=== PATIENT | female | born 2000 | race Caucasian/White ===

== ENCOUNTER 2022-08-02 08:22 | Outpatient (REF) | payer OTHER, SELFPAY ==
[2022-08-02 08:55] LABS: Estimated Average Glucose 91 mg/dL; Hemoglobin A1c % 4.8 %
[2022-08-02 09:20] LABS: Alanine Aminotransferase 9 U/L (0-31); Albumin Level 4.3 g/dL (3.5-5.0); Alkaline Phosphatase 37 U/L (39-117); Anion Gap 9 (12-20); Aspartate Amino Transferase 12 U/L (5-31); Bilirubin Total 0.7 mg/dL (0.0-1.0); Blood Urea Nitrogen 14 mg/dL (9-16); Calcium 9.6 mg/dL (8.4-10.2); Carbon Dioxide 28 mmol/L (22-29); Chloride 106 mmol/L (96-108); Cholesterol 175 mg/dL; Estimated Glomerular Filt Rate > 60; Glucose Random 87 mg/dL (60-115); HDL Cholesterol 63 mg/dL; LDL Cholesterol Calculated 108 mg/dl; Potassium 4.2 mmol/L (3.3-5.1); Sodium 139 mmol/L (135-145); Triglycerides 22 mg/dL
== END 2022-08-02 08:23 | disposition home or self-care (01) ==
LOC: HO.LAB 08:22
PROVIDERS: Visit Provider Family Medicine Adult Medicine
DX: Z00.00 Encounter for general adult medical examination without abnormal findings (principal)
CPT/HCPCS: 36415; 80053; 80061; 83036